=== PATIENT | male | born 1955 | race Caucasian/White ===

== ENCOUNTER 2018-05-30 12:46 | Day surgery (SDC) | payer OTHER ==
[~2018-05-30] VITALS: Ht 182.9 cm; Wt 107.5 kg
[~2018-05-30 12:46] MED LIST: HYDROmorphone 2 MG/ML VIAL IV PRN; IV RINGERS,LACTATED 1000ML 1,000 ML IV SCH; LIDOCAINE 1% PF 2 ML VIAL. ID PRN; MORPHINE SULFATE 2 MG/ML VIAL. IV PRN; ONDANSETRON PF 4 MG/2 ML VIAL. IV PRN; PROCHLORPERAZINE 10 MG/2 ML VIAL. IV PRN; fentaNYL PF VIAL 100 MCG/2 ML VIAL IV PRN
[2018-05-30] MEDS ORDERED: ATOR10TA60 PO (13:27)
[2018-05-30] MEDS ORDERED: TRAM-48 PO (13:27)
[2018-05-30] MEDS ORDERED: MULT1TAB52 PO (13:28)
[2018-05-30] MEDS ORDERED: DIPH25CA58 PO (13:28)
[2018-05-30] MEDS ORDERED: BUPIVAC MPF-EPI 0.5%-1:200000 30 ML VIAL. ONE (14:02)
[2018-05-30] MEDS ORDERED: LIDOCAINE 2% PF Vial for OR 5 ML VIAL. ONE (15:03)
[2018-05-30] MEDS ORDERED: ONDANSETRON PF 4 MG/2 ML VIAL. ONE (15:03)
[2018-05-30] MEDS ORDERED: DEXAMETHASONE SOD PHOS 20 MG/5 ML VIAL. ONE (15:03)
[2018-05-30] MEDS ORDERED: PROPOFOL 20 ML IV ONE (15:03)
[2018-05-30] MEDS ORDERED: FAMOTIDINE 20 MG/2 ML VIAL ONE ×2 (15:03→15:15)
[2018-05-30] MEDS ORDERED: MIDAZOLAM HCL/PF 2 MG/2 ML VIAL. ONE (15:04)
[2018-05-30] MEDS ORDERED: fentaNYL PF VIAL 100 MCG/2 ML VIAL ONE (15:04)
[2018-05-30] MEDS ORDERED: SUCCINYLCHOLINE 200 MG/10 ML VIAL. ONE (15:05)
[2018-05-30] MEDS ORDERED: ROCURONIUM 50 MG/5 ML VIAL. ONE (15:30)
[2018-05-30] MEDS ORDERED: SEVOFLURANE 31 TO 60 MINUTES. IH ONE (15:38)
[2018-05-30] MEDS ORDERED: NEOSTIGMINE METHYLSULFATE 5 MG/5 ML SYRINGE. ONE (15:42)
[2018-05-30] MEDS ORDERED: GLYCOPYRROLATE 1 MG/5 ML VIAL. ONE (15:42)
--- NOTE | 2018-05-30 15:43 | PDOC4 ---
Operative Note Operative Note Date: 05/30/2018 Preoperative diagnosis: Umbilical hernia Operative diagnosis: Same Procedure: Umbilical hernia repair Surgeon: Kalpesh Specimen: Hernia sac Dictation: Patient is a 62-year-old male is complained of a bulge at his umbilicus becoming larger and more painful. Procedure of umbilical hernia repair was explained to the patient detail was benefits were also discussed including bleeding infection alternatives to this procedure also discussed with patient seemed understanding gave both verbal and written consent had procedure performed. Patient was taken to the operating room placed in supine position general anesthesia was initiated once patient was asleep and intubated his abdomen was prepped and draped usual sterile fashion using ChloraPrep umbilicus was injected with quarter percent Marcaine with epinephrine incisions made with 15 blade scalpel through the skin this was carried down through the subtendinous tissue electrocautery to provide hemostasis. Hernia sac was excised and sent for pathology. The hernia defect was closed with figure-of- eight 0 Vicryl suture. Skin was then reapproximated 4 septic or Monocryl Mastisol Steri-Strips and 4 x 4 and Medipore tape were applied as dressing. Patient was waken expanded in the operating room taken recovery in stable condition all sponge instrument needle counts listed as correct estimated blood loss 5 mL JOSE ALVARADO MD May 30, 2018 15:43
--- NOTE | 2018-05-30 15:44 | DISCH ---
DISCHARGE INSTRUCTIONS Condition on Discharge Condition on Discharge: Stable Activity After Discharge Activity Instructions for Disc: Avoid exertion Other activity instructions: no lifting greater than 20 pounds for 2 weeks Diet after Discharge Diet after Discharge: Regular Wound Incision Care Other wound/incision instructi: May shower in 24 hours Contacting the after DC Call your doctor for: If your condition worsens Follow-Up Follow up with: Dr. Alvarado 2 weeks JOSE ALVARADO MD May 30, 2018 15:43
[2018-05-30] MEDS ORDERED: OXYC-323 PO (16:09)
[2018-05-30] MEDS ORDERED: oxyCODONE/APAP 5/325 1 TAB TABLET PO ONE ×2 (16:15)
[2018-05-30 16:50] VITALS: BP 118/64
--- NOTE | 2018-06-01 16:09 | PATHOLOGY ---
[facility] Accession Number: [id number] . 01 Material submitted: . HERNIA SAC . 01 Clinician provided ICD-10: K42.9 . 01 Clinical history: . Umbilical hernia . 02 Diagnosis: "Hernia sac", herniorrhaphy: - Hernia sac with focal mild chronic inflammation. . (SKM:vjm;06/01/2018) AGA/06/01/2018 . 02 Electronically signed: . Jesus Montero MD, Pathologist NPI- [id number] . 01 Gross description: . The specimen is received in formalin, labeled "Leia, Gerry, hernia sac", is an irregular fragment of yellow soft tissue partially covered by a justice-pink membrane measuring 2.6 x 1.5 x 1.0 cm. No discrete nodules or masses identified. [place] Tanner tissue is submitted in A1. ([facility]; 05/31/2018) [facility]S . 02 Pathologist provided ICD-10: K42.9 . 02 CPT . 338271 Specimen Comment: A courtesy copy of this report has been sent to Specimen Comment: [phone], . Specimen Comment: Report sent to / DR FONSECA Specimen Comment: A duplicate report has been generated due to demographic updates. Performed at: 01 [facility] [address], [place] [id number] MD Anderson Landis MD Phone: [phone] Performed at: 02 [facility] [address] [place], [place] [id number] MD Afshin Jackson MD Phone: [phone]
== END 2018-05-30 16:50 | disposition home or self-care (01) ==
LOC: SURG 12:46
PROVIDERS: ATTEND Surgery
DX: K42.9 Umbilical hernia without obstruction or gangrene (principal); E78.5 Hyperlipidemia, unspecified; Z86.19 Personal history of other infectious and parasitic diseases; Z98.890 Other specified postprocedural states; Z83.3 Family history of diabetes mellitus; Z82.61 Family history of arthritis; Z82.49 Family history of ischemic heart disease and other diseases of the circulatory system; F17.210 Nicotine dependence, cigarettes, uncomplicated; Z72.89 Other problems related to lifestyle; F14.10 Cocaine abuse, uncomplicated; F12.10 Cannabis abuse, uncomplicated; Z79.899 Other long term (current) drug therapy
CPT/HCPCS: 49585; A7015; J0330; J0690; J1100; J2001; J2250; J2405; J2704; J2710; J3010; J3490; 88302